=== PATIENT | female | born 1980 | race Caucasian/White ===

== ENCOUNTER 2018-06-24 10:39 | Emergency (ER) | payer OTHER ==
[~2018-06-24] VITALS: Ht 157.5 cm; Wt 68.6 kg
[2018-06-24 10:50] VITALS: BP 110/72
[2018-06-24] MEDS ORDERED: QUET200T4 PO (11:40)
[2018-06-24] MEDS ORDERED: GABA-827 PO (11:41)
[2018-06-24] MEDS ORDERED: ALBU8.5H8 INH (11:41)
[2018-06-24] MEDS ORDERED: VENL100T PO (11:41)
== END 2018-06-24 11:43 | disposition home or self-care (01) ==
LOC: ED 11:36
DX: J01.10 Acute frontal sinusitis, unspecified (principal); J01.00 Acute maxillary sinusitis, unspecified; J45.909 Unspecified asthma, uncomplicated; G62.9 Polyneuropathy, unspecified
CPT/HCPCS: 99283